=== PATIENT | female | born 1995 | race Caucasian/White ===

== ENCOUNTER 2017-10-03 12:46 | Emergency (ER) | payer MEDICAID ==
[~2017-10-03] VITALS: Ht 167.6 cm; Wt 95.5 kg
[2017-10-03 12:55] VITALS: BP 108/52; PULSE 85; TEMP 98.2
[2017-10-03 14:33] LABS: INFLUENZA A NEGATIVE; INFLUENZA B NEGATIVE
[2017-10-03] MEDS ORDERED: TAMIFLU 75MG75 MG PO (14:49)
== END 2017-10-03 15:15 | disposition home or self-care (01) ==
LOC: COL.ER 12:46
PROVIDERS: Nurse Practitioner Primary Care
DX: J06.9 Acute upper respiratory infection, unspecified (principal); Z20.828 Contact with and (suspected) exposure to other viral communicable diseases